=== PATIENT | female | born 2000 | race Caucasian/White ===

== ENCOUNTER 2021-06-15 16:07 | Emergency (ER) | payer OTHER ==
[~2021-06-15] VITALS: Ht 152.4 cm; Wt 59.0 kg
== END 2021-06-15 20:16 | disposition home or self-care (01) ==
LOC: ER 16:07
DX: O26.891 Other specified pregnancy related conditions, first trimester (principal); Z3A.01 Less than 8 weeks gestation of pregnancy; Z37.0 Single live birth; R10.2 Pelvic and perineal pain

== ENCOUNTER 2021-10-13 14:26 | Outpatient (CLI) | payer OTHER | END 2021-10-13 15:40 | disposition home or self-care (01) | LOC: PRENATAL 14:26 | PROVIDERS: ATTEND Obstetrics & Gynecology Maternal & Fetal Medicine | DX: O35.0XX0 Maternal care for (suspected) central nervous system malformation in fetus, not applicable or unspecified (principal); O35.3XX0 Maternal care for (suspected) damage to fetus from viral disease in mother, not applicable or unspecified; Z3A.22 22 weeks gestation of pregnancy ==

== ENCOUNTER 2021-12-24 09:05 | Outpatient (CLI) | payer OTHER | END 2021-12-24 10:15 | disposition home or self-care (01) | LOC: PRENATAL 09:05 | PROVIDERS: ATTEND Obstetrics & Gynecology Maternal & Fetal Medicine | DX: O26.849 Uterine size-date discrepancy, unspecified trimester (principal); O35.0XX0 Maternal care for (suspected) central nervous system malformation in fetus, not applicable or unspecified; O36.8199 Decreased fetal movements, unspecified trimester, other fetus ==

== ENCOUNTER 2023-01-09 19:48 | Emergency (ER) | payer OTHER ==
[~2023-01-09] VITALS: Ht 152.4 cm; Wt 63.5 kg
[~2023-01-09 19:48] MED LIST: FOLIC ACID1 MG; PRENATAL VITAM1 EAC3
[2023-01-09 21:07] LABS: HEMOGLOBIN 11.3 g/dL (12.0-15.00); MEAN CELL VOLUME 87.4 fL (80.00-100.00); MEAN CORPUSCULAR HEMOGLOBIN 28.3 pg (27.00-32.0); MEAN CORPUSCULAR HGB CONC 32.4 g/dl (32.0-36.0); PLATELET COUNT 366 K/uL (150-450); RED BLOOD COUNT 4.01 M/uL (4.00-6.00); RED CELL DISTRIBUTION WIDTH 14.4 % (11.5-14.5)
[2023-01-09 21:45] LABS: PH,URINE 5.5 (5.0-8.0); URINE APPEARANCE Clear; URINE BILIRRUBIN Negative (NEGATIVE); URINE BLOOD Negative; URINE COLOR Yellow; URINE GLUCOSE Negative (NEGATIVE); URINE LEUKOCYTE Trace; URINE NITRATE Negative; URINE PROTEIN Negative (NEGATIVE); URINE UROBILINOGEN 0.2 E.U./dl
[2023-01-09 21:49] LABS: URINE BACTERIA 948.6 uL (0.0-1933); URINE EPITHELIAL CELLS 35.2 uL (0.0-38.8); URINE WBC 37.8 uL (0.0-23.2)
[2023-01-09] MEDS ORDERED: DUI500 PO (22:34)
[2023-01-09] MEDS ORDERED: PRENATE ELITE1 EAC2 PO (22:34)
== END 2023-01-09 22:41 | disposition home or self-care (01) ==
LOC: ER 19:49
PROVIDERS: Nurse Practitioner Family
DX: O26.891 Other specified pregnancy related conditions, first trimester (principal); R10.2 Pelvic and perineal pain; Z3A.01 Less than 8 weeks gestation of pregnancy

== ENCOUNTER 2023-01-18 13:10 | Outpatient (CLI) | payer OTHER ==
[~2023-01-18 13:10] MED LIST changes: +DUI500 PO; +PRENATE ELITE1 EAC2 PO
== END 2023-01-18 13:14 | disposition home or self-care (01) ==
LOC: PRENATAL 13:10
PROVIDERS: ATTEND Obstetrics & Gynecology Maternal & Fetal Medicine
DX: O36.80X0 Pregnancy with inconclusive fetal viability, not applicable or unspecified (principal); O30.90 Multiple gestation, unspecified, unspecified trimester; Z3A.01 Less than 8 weeks gestation of pregnancy

== ENCOUNTER 2023-02-28 14:44 | Outpatient (CLI) | payer OTHER | END 2023-02-28 14:47 | disposition home or self-care (01) | LOC: PRENATAL 14:44 | PROVIDERS: ATTEND Obstetrics & Gynecology Maternal & Fetal Medicine | DX: O36.80X0 Pregnancy with inconclusive fetal viability, not applicable or unspecified (principal); Z36.82 Encounter for antenatal screening for nuchal translucency; Z3A.14 14 weeks gestation of pregnancy ==

== ENCOUNTER 2023-04-18 08:24 | Outpatient (CLI) | payer OTHER | END 2023-04-18 08:25 | disposition home or self-care (01) | LOC: PRENATAL 08:24 | PROVIDERS: ATTEND Obstetrics & Gynecology Maternal & Fetal Medicine | DX: O35.3XX0 Maternal care for (suspected) damage to fetus from viral disease in mother, not applicable or unspecified (principal); O30.90 Multiple gestation, unspecified, unspecified trimester; Z3A.19 19 weeks gestation of pregnancy ==

== ENCOUNTER 2023-05-22 09:36 | Outpatient (CLI) | payer OTHER | END 2023-05-22 09:48 | disposition home or self-care (01) | LOC: PRENATAL 09:36 | PROVIDERS: ATTEND Obstetrics & Gynecology Maternal & Fetal Medicine | DX: O26.849 Uterine size-date discrepancy, unspecified trimester (principal); O30.90 Multiple gestation, unspecified, unspecified trimester; Z3A.25 25 weeks gestation of pregnancy ==

== ENCOUNTER → 2023-06-19 09:37 | Outpatient (CLI) | payer OTHER | END | disposition home or self-care (01) | LOC: PRENATAL 09:37 | PROVIDERS: ATTEND Obstetrics & Gynecology Maternal & Fetal Medicine | DX: O26.849 Uterine size-date discrepancy, unspecified trimester (principal); O30.90 Multiple gestation, unspecified, unspecified trimester; Z3A.29 29 weeks gestation of pregnancy ==

== ENCOUNTER 2023-07-12 00:15 | Outpatient (CLI) | payer OTHER ==
[2023-07-12] MEDS ORDERED: IRON236 MG (00:20)
[2023-07-12] MEDS ORDERED: RINGERS SOLUTION,LACTATED 1,000 ML IV SCH (00:30)
[2023-07-12 01:52] LABS: PH,URINE 6.5 (5.0-8.0); URINE APPEARANCE Turbid; URINE BILIRRUBIN Negative (NEGATIVE); URINE BLOOD Negative; URINE COLOR Yellow; URINE GLUCOSE Negative (NEGATIVE); URINE LEUKOCYTE Negative; URINE NITRATE Negative; URINE PROTEIN Negative (NEGATIVE); URINE UROBILINOGEN 0.2 E.U./dl
[2023-07-12 01:53] LABS: HEMATOCRIT 31.3 % (36.0-45.00); HEMOGLOBIN 10.5 g/dL (12.0-15.00); MEAN CELL VOLUME 84.8 fL (80.00-100.00); MEAN CORPUSCULAR HEMOGLOBIN 28.3 pg (27.00-32.0); MEAN CORPUSCULAR HGB CONC 33.4 g/dl (32.0-36.0); PLATELET COUNT 217 K/uL (150-450); RED BLOOD COUNT 3.69 M/uL (4.00-6.00); RED CELL DISTRIBUTION WIDTH 15.5 % (11.5-14.5)
[2023-07-12 01:56] LABS: URINE BACTERIA 2153.3 uL (0.0-1933); URINE EPITHELIAL CELLS 95.5 uL (0.0-38.8); URINE WBC 15.3 uL (0.0-23.2)
[2023-07-12 01:58] LABS: URINE RBC 1.1 uL (0.0-20.8)
[2023-07-12 02:09] LABS: INR < 0.93; PARTIAL THROMBOPLASTIN TIME 27.5 SECONDS (22.0-34.0); PROTHROMBIN TIME 9.6 SECONDS (9.0-11.5)
[2023-07-12] MEDS ORDERED: BETAMETHASONE ACETATE,SOD PHOS 30 MG/5 ML ML ONE (03:10)
[2023-07-12] MEDS ORDERED: TERBUTALINE SULFATE 1 MG/ML AMPUL ONE (03:12)
[2023-07-12] MEDS ORDERED: TERBUTALINE SULFATE 1 MG/ML AMPUL SUBCUTANEO STA (03:45)
[2023-07-12] MEDS ORDERED: CEFAZOLIN SODIUM 1,000 MG VIAL IV SCH (03:47)
[2023-07-12] MEDS ORDERED: BETAMETHASONE ACETATE,SOD PHOS 30 MG/5 ML ML IM ONE ×2 (04:00→15:00)
== END 2023-07-12 16:20 | disposition home or self-care (01) ==
LOC: OBS/DEL 00:15
PROVIDERS: ATTEND Obstetrics & Gynecology
DX: Z34.83 Encounter for supervision of other normal pregnancy, third trimester (principal)